=== PATIENT | female | born 1975 | race Caucasian/White ===

== ENCOUNTER → 2018-01-03 | Outpatient (CLI) | payer OTHER ==
[~2018-01-03] MED LIST: ACYCLOVIR 400400 MG PO; BACTRIM DS TAB1 EACH PO; DELZICOL400 MG PO; DOXYCYCLINE 10100 MG PO; NAPROSYN500 MG PO; TRAMADOL 50 MG50 MG PO
== END ==
LOC: RAD 04:50
DX: Z12.31 Encounter for screening mammogram for malignant neoplasm of breast (principal)

== ENCOUNTER → 2018-11-21 | Outpatient (CLI) | payer OTHER | LOC: ULTRA 02:56 → RAD 02:56 | DX: N63.21 Unspecified lump in the left breast, upper outer quadrant (principal) ==

== ENCOUNTER → 2021-04-17 | Outpatient (CLI) | payer OTHER ==
[~2021-04-17] MED LIST changes: +ALLEGRA ALLERG180 MG PO; +MIRALAX119 GM PO; +PROAIR HFA8.5 GM INH
== END ==
LOC: LAB 14:22
PROVIDERS: ATTEND Student in an Organized Health Care Education/Training Program
DX: Z01.812 Encounter for preprocedural laboratory examination (principal); Z20.822 Contact with and (suspected) exposure to COVID-19

== ENCOUNTER → 2021-06-05 | Outpatient (CLI) | payer OTHER ==
[~2021-06-05] MED LIST changes: +FLONASE 0.05%50 MCG NARES; +SALINE NASAL SP88 ML NASAL
== END ==
LOC: LAB 05:42
PROVIDERS: ATTEND Student in an Organized Health Care Education/Training Program
DX: Z01.812 Encounter for preprocedural laboratory examination (principal); Z20.822 Contact with and (suspected) exposure to COVID-19

== ENCOUNTER → 2021-06-07 | Outpatient (CLI) | payer OTHER ==
[~2021-06-07] VITALS: Ht 162.6 cm; Wt 65.8 kg
--- NOTE | 2021-06-09 10:40 | P ---
[facility] [place] [address] PROCEDURE REPORT Name: TONY MAN Room #: REG [facility].#: [id number] Admission: 06/07/21 Attend Phys: Melvin Prado Discharge: Date of : 79 Report #: [id number] THIS REPORT FOR: cc: Tye Domínguez Kent DO McElhinney, Christian C. MD ~ cc: Tye Domínguez DO DATE OF SERVICE: 06/07/2021 PROCEDURE PERFORMED: Colonoscopy with biopsies. HISTORY OF PRESENT ILLNESS: The patient is a 45-year-old female who was seen by myself in the office for the first time on 09/22/2020 with a history of possible ulcerative colitis. 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 Only old record I had available was 2015, which was normal. She has been taking mesalamine for a number of years. When we spoke in the office, she was on one 400 mg capsule a day. She was interested in discontinuing this as she was having no symptoms other than constipation. She has been off her mesalamine since that time. Still complains of constipation and uses MiraLax on a p.r.n. basis. FAMILY HISTORY: Unknown as she is adopted. DESCRIPTION OF PROCEDURE: The risks and benefits of the procedure were explained to the patient, those risks including but not limited to bleeding, perforation and the risk of sedation. She understood these risks and gave informed consent. Sedation was given using propofol per anesthesia. Next, a digital rectal exam was initially performed, which was normal. Next, using a standard Olympus colonoscope, the scope was placed in the patient's anus and advanced under direct vision to the cecum. The overall prep was excellent. The cecum and ileocecal valve were normal in appearance. The terminal ileum was intubated and normal in appearance. The ascending, transverse, descending and sigmoid colon were all normal. No evidence of colitis. Random biopsies were obtained today. In the rectum, a single 3 mm sessile polyp was noted. This was removed with cold forceps, otherwise normal. On retroflexion, no abnormalities were noted. The scope was then withdrawn and the procedure terminated. The patient tolerated the procedure well. IMPRESSION: 1. Small rectal polyp. 2. Otherwise, normal colonoscopy. RECOMMENDATIONS: 1. Await biopsy results. 2. No evidence of colitis on exam today. If biopsies are negative, repeat [address] [address] PROCEDURE REPORT Name: TONY MAN [id number] Admission: 06/07/21 Attend Phys: Melvin Prado Discharge: Date of : 79 Report #: [id number] colonoscopy in 5 years. The patient can continue to hold her mesalamine as there is no evidence of inflammation. Plan is to continue MiraLax for her constipation. Thank you for allowing me to participate in her care. <ELECTRONICALLY SIGNED> By: Melvin Chinchilla MD 06/09/21 1040 1043 1132 Melvin Chinchilla MD /nt
--- NOTE | 2021-06-09 17:07 | PATH ---
[facility] [place] [address] PATHOLOGY RPT PROCEDURE Name: ALAINA MAN Room #: REG [facility] Vinh.#: [id number] Admission: 06/07/21 Date of : 79 Discharge: Report #: [id number] Path Case #: [id number] [facility] Accession Number: [id number] . 01 Material submitted: . PART A: colon - RANDOM COLON BIOPSY R/O ULCERATIVE COLITIS PART B: rectum - RECTAL BIOPSY R/O ULCERATIVE COLITIS PART C: rectum - RECTAL POLYP . 01 Clinical history: . COLONOSCOPY HX OF ULCERATIVE COLITIS . 01 Diagnosis: A. Colonic mucosa "random colon biopsies": - No diagnostic features. - There is no evidence of acute cryptitis, granulomas, adenomatous change or malignancy. . B. Colonic mucosa "rectal biopsy rule out ulcerative colitis": - No diagnostic features. - There is no evidence of acute cryptitis, granulomas, adenomatous change or malignancy. . C. Colonic mucosa "rectal polyp biopsy": - Hyperplastic polyp. - There is no evidence of adenomatous change, high grade dysplasia or malignancy. (RANDALL/db; 06/09/2021) LBQ 06/09/2021 1039 Local . 01 Electronically signed: . Yonathan Ortez MD, Pathologist NPI- [id number] . 01 Gross description: . A. The specimen is received in formalin, labeled "Alaina Man, random colon BX" and consists of multiple hernandez irregular tissues aggregating 0.5 x 0.4 x 0.2 cm which are submitted in toto in A1. . B. The specimen is received in formalin, labeled "Alaina Man, rectal BX R/O U.C." and consists of multiple hernandez irregular tissues aggregating 0.4 x 0.4 x 0.1 cm which are submitted in toto in B1. . C. The specimen is received in formalin, labeled "Alaina Man, rectal polyp" and consists of 2 hernandez irregular tissues aggregating 0.3 x 0.2 0.1 cm which are submitted in toto in C1.([facility]; 06/08/2021) [address] [address] PATHOLOGY RPT PROCEDURE Name: ALAINA MAN Room #: REG CLI Eric#: [id number] Admission: 06/07/21 Date of : 79 Discharge: Report #: [id number] Path Case #: [id number] DKA/DKA 06/09/2021 1036 Local . 01 Pathologist provided ICD-10: K62.1, Z12.11, Z87.19 . 01 CPT . 681251, 079027, 053885 Specimen Comment: A courtesy copy of this report has been sent to [phone], [phone] Specimen Comment: [id number] Specimen Comment: Report sent to / DR DAVISON Performed at: 01 [facility] [address], [place], [place] [id number] MD Yonathan Ortez MD Phone: [phone]
== END | disposition home or self-care (01) ==
LOC: GI 09:28
PROVIDERS: ATTEND Specialist
DX: K59.00 Constipation, unspecified (principal); K62.1 Rectal polyp; J45.909 Unspecified asthma, uncomplicated; K21.9 Gastro-esophageal reflux disease without esophagitis; Z98.890 Other specified postprocedural states; Z79.899 Other long term (current) drug therapy; Z91.040 Latex allergy status; Z87.891 Personal history of nicotine dependence; Z87.19 Personal history of other diseases of the digestive system